=== PATIENT | male | born 1980 | race Caucasian/White ===

== ENCOUNTER 2018-04-24 16:14 | Emergency (ER) | payer OTHER ==
--- NOTE | 2018-04-24 16:36 | EDPHY ---
H & P Time Seen by Provider: 04/24/18 16:28 HPI/ROS: CHIEF COMPLAINT: Fall HISTORY OF PRESENT ILLNESS: The patient is a 37-year-old male who presents emergency department after falling while rock climbing and [place]. Patient was unable to release his rope while in a harness so he subsequently fell. (>20 ft) He landed on both feet. He had sudden pain in his right ankle. His only complaint at this time is right ankle pain. He noted deformity. He has no numbness or tingling. The patient did not strike his head. He has no neck or back pain. No pelvic pain. Patient was able to stand up and move about after his fall. He has no chest pain or shortness of breath. No abdominal pain. REVIEW OF SYSTEMS: 10 systems were reveiwed and are negative with the exception of the elements mentioned in the history of present illness. Past Medical/Surgical History: High cholesterol Past surgical history: No previous ankle surgery Smoking Status: Never smoked Physical Exam: Vitals noted GENERAL: Well-appearing, in no acute distress, alert. HEAD: No evidence of trauma. EYES: PERRLA, EOMI, normal to inspection. ENT: Airway intact, normal external examination. NECK: The trachea is midline. There is no crepitus. The C-spine is nontender. NEXUS criteria is negative (no midline tenderness, no distracting injury, no altered mental status, no recent alcohol use, no focal neurologic deficit). RESPIRATORY: [Clear to auscultation bilaterally, no rales, rhonchi or wheezing. Chest wall: Normal to appearance. No crepitance or deformity. CVS: Regular rate and rhythm, no rubs, murmurs, or gallops. ABDOMEN: Soft, nontender, nondistended, no bruising or abrasions. Pelvis: Stable. No tenderness palpation. BACK: Normal to inspection, no spinal tenderness, no spinal step off, no notable bruising or abrasions. SKIN: Normal color, warm, dry. No pallor or diaphoresis. EXTREMITIES: Right upper extremity: Atraumatic. No visible signs of trauma. No tenderness palpation. Neurovascular intact distally. Left upper extremity: Atraumatic. No visible signs of trauma. No tenderness palpation. Neurovascular intact distally. Right lower extremity: Patient has deformity to his right ankle. There is mild swelling. Patient has tenderness palpation over his lateral malleolus. Neurovascular intact distally. Left lower extremity: Atraumatic. No visible signs of trauma. No tenderness palpation. Neurovascular intact distally. NEURO/PSYCH: Alert and oriented x 3, GCS 15, normal mood and affect, normal motor sensory exam. Constitutional: Initial Vital Signs Temperature (C) 36.5 C 04/24/18 16:17 Heart Rate 76 04/24/18 16:17 Respiratory Rate 18 04/24/18 16:17 Blood Pressure 151/93 H 04/24/18 16:17 O2 Sat (%) 96 04/24/18 16:17 O2 Delivery Mode Room Air Allergies/Adverse Reactions: No Known Allergies Allergy (Unverified 04/24/18 16:15) Home Medications: Medication Instructions Recorded Cymbalta 04/24/18 Niacin 04/24/18 oxyCODONE/APAP 5/325 [Percocet 1 - 2 tab PO Q4PRN PRN #11 tab 04/24/18 5/325 (*)] Medical Decision Making - Diagnostics Imaging Results: Imaging Impressions Ankle X-Ray 04/24/18 16:22 Impression: Flattening of the calcaneus compatible with fracture. Pelvis X-Ray 04/24/18 16:38 Impression: No fracture identified. Tibia/Fibula X-Ray 04/24/18 16:38 Impression: 1. Flattening of the right calcaneus compatible with fracture; otherwise negative. Extremity CT 04/24/18 17:53 Impression: Comminuted right calcaneal fracture with predominant involvement of the calcaneus at the articulation with the posterior facet. Linear vertical fracture line extends anteriorly through the calcaneal body with slight displacement. ED Course/Re-evaluation: In the emergency department I met the patient on arrival. The patient has isolated ankle injury. I do not feel he meets trauma activation criteria. An x -ray of his right ankle, right tib-fib, pelvis were ordered. Tib-fib x-ray: Please refer the dictated report. No acute disease Right ankle x-ray: Please refer the dictated report by Dr. Agarwal. Patient has a calcaneus fracture with soft tissue swelling. Pelvis x-ray: Please refer the dictated report. No acute disease noted. I discussed the results with the patient. I answered all his questions. On recheck he was neurovascular intact distally. 1715: I discussed the case with Dr. Buckley from Orthopedic surgery. He will reviewed the images and call me back. After review of the images Dr. Buckley recommended a posterior stirrup splint. He recommended CT imaging prior to discharge. He will follow-up in his clinic. I discussed this plan with the patient. CT of the right calcaneus ordered. A posterior and stirrup Ortho Glass splint was placed. Post splint placement patient is neurovascular intact distally. CT of the calcaneus: Please refer the dictated report by the radiologist. Patient has comminuted fracture of the calcaneus. This will be further evaluated by Orthopedics. I discussed the plan with the patient. 1930: On recheck the patient was doing well. He was tolerating splint. He is given instruction on crutches. He was given warnings prior to leaving. Differential Diagnosis: My differential includes but is not limited to foot fracture, ankle fracture, tib-fib fracture, pelvic injury, lumbar spine injury, disc herniation, closed- head injury - Data Points Medications Given: Discontinued Medications Ondansetron HCl (Zofran Odt) 4 mg PO EDNOW ONE Stop: 04/24/18 17:41 Last Admin: 04/24/18 17:43 Dose: 4 mg Oxycodone/Acetaminophen (Percocet 5/325) 2 tab PO EDNOW ONE Stop: 04/24/18 17:14 Last Admin: 04/24/18 17:15 Dose: 2 tab Departure - Departure Disposition: Home, Routine, Self-Care Clinical Impression: Fall Qualifiers: Encounter type: initial encounter Qualified Code(s): W19.XXXA - Unspecified fall, initial encounter Calcaneal bursitis (heel) Qualifiers: Laterality: right Qualified Code(s): M77.51 - Other enthesopathy of right foot Condition: Good Instructions: Calcaneal Fracture (ED) Additional Instructions: You have a fracture of your calcaneus. Keep your splint in place. You should be non-weight bearing. Use your crutches. Call Dr. Buckley tomorrow morning to make an appointment. Referrals: Kurt Buckley MD [Medical Doctor] - 3-4 days, if not improved Prescriptions: oxyCODONE/APAP 5/325 [Percocet 5/325 (*)] 1 - 2 tab PO Q4PRN PRN #11 tab PRN Reason: For Moderate To Severe Pain
[2018-04-24] MEDS ORDERED: OXYCODONE/APAP 5/325 TAB PO ONE (17:13)
[2018-04-24] MEDS ORDERED: ONDANSETRON DISINTEGRATING 4 MG TAB PO ONE (17:40)
[2018-04-24] MEDS ORDERED: OXYCODONE/APAP 5/325MG PREPACK#4 BTL TAKEHOME ONE (19:39)
[2018-04-24] MEDS ORDERED: IBUPROFEN 600 MG TAB PO ONE (19:39)
[2018-04-24] MEDS ORDERED: ONDANSETRON 4MG PREPACK#2 BTL TAKEHOME ONE (19:39)
[2018-04-24 19:50] VITALS: BP 151/81
--- NOTE | 2018-04-26 21:30 | ASMTCMCOM ---
CM Note CM Note Notes: Follow up call to patient regarding orthopedic referral received from ED visit on 04/24/18. Patient reports having difficulth scheduling an appointment with a, orthopedist specializing in calcaneal fracture. patient was initially referred to Dr. Buckley with [facility]. Patient reports that when he called [facility] [place] was informed that DR. Buckley was a hand specialist and was referred to a revenue stamp cutter in a different practice. This CM contacted Tiffanie at [facility] , explained situation, and faxed original ED referral to her . Tiffanie will contact patient directly to schedule an appointment with Dr. Stauffer or Dr. Rosen at [facility]. This CM contacted patient and provided direct phone number for Tiffanie at [facility] and told him he should be receiving a call from her today to schedule an appointment. Date Signed: 04/26/2018 12:25 PM Electronically Signed By:Kate Carranza RN
== END 2018-04-24 19:48 | disposition home or self-care (01) ==
PROC: 2W3QX1Z Immobilization of Right Lower Leg using Splint (ICD-10-PCS; principal; 2018-04-24)
DX: S92.011A Displaced fracture of body of right calcaneus, initial encounter for closed fracture (principal); M77.51 Other enthesopathy of right foot and ankle; W15.XXXA Fall from cliff, initial encounter; Y93.31 Activity, mountain climbing, rock climbing and wall climbing; Y92.838 Other recreation area as the place of occurrence of the external cause; Y99.9 Unspecified external cause status